=== PATIENT | female | born 1980 | race Caucasian/White ===

== ENCOUNTER 2022-07-21 15:48 | Emergency (ER) | payer OTHER ==
[~2022-07-21] VITALS: Ht 165.1 cm; Wt 77.1 kg
[2022-07-21] MEDS ORDERED: OCUFLOX510 BOTHEYES (16:30)
== END 2022-07-21 16:52 | disposition home or self-care (01) ==
LOC: ER 15:48
DX: H10.9 Unspecified conjunctivitis (principal); Z88.8 Allergy status to other drugs, medicaments and biological substances
CPT/HCPCS: 99282; A9270